=== PATIENT | female | born 1955 | race Caucasian/White ===

== ENCOUNTER 2022-01-19 17:04 | Emergency (ER) | payer MEDICARE, SELFPAY ==
--- NOTE | 2022-01-19 17:11 | ED.URI ---
HPI - URI/Sore Throat General Chief Complaint: Upper Respiratory Infection Stated Complaint: sorethroat Time Seen by Provider: 01/19/22 17:11 Source: patient Mode of arrival: ambulatory Limitations: no limitations History of Present Illness HPI Narrative: Ms. Lagos is a 66-year-old female patient presenting to the clinic today with complaints of sore throat and nasal congestion x1 day. She reports that she was exposed to someone with COVID approximately 5 days ago. She denies any fever or chills. She denies any shortness of breath, or chest pain, or fatigue. MD elicited complaint: sore throat and nasal congestion Related Data Home Medications Medication Instructions Recorded Confirmed metronidazole 1 % topical gel 1 applic topical HS PRN rosacea 01/19/22 01/19/22 (Metrogel) Allergies Allergy/AdvReac Type Severity Reaction Status Date / Time levofloxacin AdvReac Intermediate Swelling Verified 01/19/22 17:34 CEPHALEXIN MONOHYDRATE AdvReac Intermediate Anxiety Uncoded 01/19/22 17:34 Review of Systems Review of Systems: Pertinent positives per HPI. Patient denies any fever, chills, rash, headache, visual changes, dizziness, cough, shortness of breath, chest pain, palpitations, nausea, vomiting, diarrhea, constipation, abdominal pain, or any urinary issues. PMFSH Comments At the time of my signature, I reviewed and agree with the nursing past medical, surgical, social, and family history. There is no relevant family history pertinent to the patient complaint. Exam Narrative: General: Well-developed, overweight, in no apparent distress Head: Normocephalic, atraumatic Eyes: Pupils equally round and reactive to light bilaterally, EOM intact, sclera and conjunctive clear, no discharge, lids normal Ears: TMs intact and clear, ear canals clear, no drainage, grossly hearing normal. Nose: Nares patent, clear discharge, moderate inflammation to the left nare and mild inflammation to the right nare, no sinus tenderness. Mouth: Oropharynx without lesions or masses, good dentition, MMM. Postnasal drip Neck: Supple, trachea midline, no enlargement of anterior or posterior cervical nodes, no thyroid masses or goiter palpable. Cardio: Regular rate and rhythm, s1 and s2 normal, no murmur appreciated. Resp: Clear to auscultation bilaterally anteriorly and posteriorly, no rhonchi, rales, wheezing or rubs Course Course Emergency Course: Portions of this record may have been created with voice recognition software. Level of Care: Express Care Visit Vital Signs Vital signs: Vital Signs Temperature 37.1 C 01/19/22 17:25 Pulse Rate 82 01/19/22 17:25 Respiratory Rate 18 01/19/22 17:25 Blood Pressure 146/67 H 01/19/22 17:25 Pulse Oximetry 98 01/19/22 17:25 Oxygen Delivery Room Air 01/19/22 17:25 Temperature 37.1 C 01/19/22 17:25 Pulse Rate 82 01/19/22 17:25 Respiratory Rate 18 01/19/22 17:25 Blood Pressure 146/67 H 01/19/22 17:25 Pulse Oximetry 98 01/19/22 17:25 Oxygen Delivery Room Air 01/19/22 17:25 Vital signs reviewed MDM - URI/Sore Throat MDM Narrative Medical decision making narrative: At the time of visit patient is resting comfortably on the exam table. COVID testing and strep testing were obtained and were both negative in the clinic. Supportive measures were discussed with the patient and CDC guidelines for testing were reviewed. She voiced understanding of the discharge instructions and agrees to the treatment plan. Differential Diagnosis Differential diagnosis: Likely upper respiratory infection, otitis media, sinusitis, viral infection, bronchitis, influenza, pharyngitis and other (COVID) Lab Data Labs: Lab Results 01/19/22 Range/Units 17:25 POC SARS CoV-2 Ag Negative (Negative) Strep Screen Presumptive Negative *(Reference Range: Negative)* Strep Screen Presumptive Negati
[2022-01-19 17:25] VITALS: BP 146/67; PULSE 82; RESP 18; TEMP 37.1; O2SAT 98
== END 2022-01-19 17:46 | disposition home or self-care (01) ==
PROVIDERS: Emergency Provider Nurse Practitioner Family
DX: J06.9 Acute upper respiratory infection, unspecified (principal); J02.9 Acute pharyngitis, unspecified; Z20.822 Contact with and (suspected) exposure to COVID-19
CPT/HCPCS: 87081; 87426; 87880; 99213; C9803; G0463